=== PATIENT | male | born 1960 | race Caucasian/White ===

== ENCOUNTER 2017-04-20 06:04 | Day surgery (SDC) | payer OTHER ==
[2017-04-11 13:30] LABS: HEMATOCRIT 42.4 % (40.0-51.0); HEMOGLOBIN 14.3 g/dL (13.6-17.8)
[2017-04-11 13:40] LABS: BUN (BLOOD UREA NITROGEN) 19 MG/DL (6-23); CALCIUM, SERUM 8.9 MG/DL (8.5-10.4); CHLORIDE, SERUM 106 MMOL/L (96-112); CO2 (CARBON DIOXIDE) 30 MMOL/L (24-34); CREATININE 1.12 MG/DL (0.70-1.30); GFR AFRICAN AMERICAN 85 ML/MIN (>=60); GFR NON AFRICAN AMERICAN 73 ML/MIN (>=60); GLUCOSE, SERUM 108 MG/DL (60-99); POTASSIUM, SERUM 4.1 MMOL/L (3.5-5.3); SODIUM, SERUM 141 MMOL/L (135-148)
[~2017-04-20 06:04] MED LIST: CAT1; ULTRAM50
== END 2017-04-20 23:59 | disposition home or self-care (01) ==
LOC: MSC 06:04
PROVIDERS: Surgery Plastic and Reconstructive Surgery
PROC: 0WBL0ZZ Excision of Lower Back, Open Approach (ICD-10-PCS; 2017-04-20)
PROC: 0HBV0ZZ Excision of Bilateral Breast, Open Approach (ICD-10-PCS; principal; 2017-04-20 07:15)
DX: Z41.1 Encounter for cosmetic surgery (principal); D22.5 Melanocytic nevi of trunk; N62 Hypertrophy of breast; E88.1 Lipodystrophy, not elsewhere classified; I10 Essential (primary) hypertension; G47.33 Obstructive sleep apnea (adult) (pediatric); T75.3XXA Motion sickness, initial encounter; Z98.890 Other specified postprocedural states; Z79.899 Other long term (current) drug therapy; Z88.0 Allergy status to penicillin; Z99.89 Dependence on other enabling machines and devices; Z87.891 Personal history of nicotine dependence; Z90.81 Acquired absence of spleen
CPT/HCPCS: 80048; 85014; 85018; 93005; A9270-GY; J0690; J2250; J2270; J2405; J2710; J3010